=== PATIENT | male | born 1975 | race Two or more races ===

== ENCOUNTER → 2025-06-14 | Outpatient (CLI) | payer MEDICAID, SELFPAY ==
--- NOTE | 2025-06-14 15:02 | XR_ITS ---
Examination: Ribs, left, with PA chest, 5 views Technique: Chest PA, RIBS AP, RPO, LPO, AP coned lower ribs 5 views Exam date and time: June 14, 2025: 1507 hours INDICATIONS: Patient fell 5 days ago with injury to left chest, left rib pain Findings: No pneumothorax Normal heart size Prominent osteopenia Acute fractures left third, fourth, fifth, sixth ribs posterolaterally with mild offset IMPRESSION: No pneumothorax Acute fractures left third, fourth, fifth, sixth ribs posterolaterally
== END | disposition home or self-care (01) ==
LOC: CDIM 14:49
PROVIDERS: PCP Nurse Practitioner Family; Referring Provider Nurse Practitioner Family; Visit Provider Nurse Practitioner Family
DX: S22.42XD Multiple fractures of ribs, left side, subsequent encounter for fracture with routine healing (principal); W19.XXXD Unspecified fall, subsequent encounter
CPT/HCPCS: 71101